=== PATIENT | male | born 1985 | race Caucasian/White ===

== ENCOUNTER → 2018-04-13 | Outpatient (CLI) | payer BC ==
--- NOTE | 2018-04-14 07:43 | RAD ---
EXAM DESCRIPTION: UGI: Rad-Fluoroscopy. CLINICAL HISTORY: R11.2. Acid reflux is increasing. Increasing nausea and vomiting. COMPARISON: None TECHNIQUE: The patient swallowed barium pill with water. The patient swallowed gas-producing granules, water, and heavy density barium under fluoroscopic visualization. The images were obtained with the patient upright and horizontal. Patient drank medium density barium through a straw in the semi-prone position. 50 fluoroscopic cine loop images. 11 static fluoroscopic images. Total fluoroscopy time was 3.6 minutes.. DAP: 34.09 Gy-cm2.. FINDINGS: Patient swallowed water with barium pill in mouth. Rapid transit through the gastroesophageal junction with momentary delay. Flow into the gastric cavity with another swallow of water. Oral and pharyngeal phase of swallow grossly normal with no laryngeal aspiration. Primary peristaltic wave is unremarkable. No secondary or tertiary contractions With patient in supine and LPO and RPO positions, gastroesophageal reflux is noted to the level of the tracheal thaddeus. The distal esophagus dilates approximately twice the normal diameter as this occurs. A small sliding hiatal hernia is also present. Stomach well distended with gas and contrast material with no intrinsic lesions. No mass effect. Duodenum was well distended with gas and contrast material with no intrinsic lesions are noted mass effect. IMPRESSION: 1. Gastroesophageal reflux is noted to the level of the tracheal thaddeus with patient supine. Distal esophagus dilates twice the normal diameter when this occurs. Small sliding gastroesophageal hiatal hernia. 2. No mucosal lesions in the stomach or duodenum. No mass effect. Electronically signed by: Luis Wellington MD 04/14/2018 7:41 AM CDT
== END ==
LOC: RAD 08:43
PROVIDERS: ATTEND Family Medicine
DX: R11.2 Nausea with vomiting, unspecified (principal); K21.9 Gastro-esophageal reflux disease without esophagitis; K44.9 Diaphragmatic hernia without obstruction or gangrene